=== PATIENT | male | born 1975 | race African-American/Black ===

== ENCOUNTER 2020-11-26 15:21 | Emergency (ER) | payer OTHER ==
[2020-11-26] MEDS ORDERED: Cyclobenzaprine 10 MG Tab PO STA (15:37)
[2020-11-26] MEDS ORDERED: Acetaminophen/HYDROcodone 325-5 MG Tab PO STA (15:37)
[2020-11-26] MEDS ORDERED: Ketorolac 30 MG/ML SDV IM STA (15:37)
--- NOTE | 2020-11-26 16:07 | EDM.PDOC ---
ED HPI GENERAL MEDICAL PROBLEM - General Chief Complaint: Neck Problem Stated Complaint: BACK PAIN Time Seen by Provider: 11/26/20 15:35 Source of Information: Reports: Patient History Limitations: Reports: No Limitations - History of Present Illness INITIAL COMMENTS - FREE TEXT/NARRATIVE: Patient presented to the ED because of a neck and back pain. He was helping a frient moving furniture 5 days ago and since then his neck and back has been hurting. The pain is sharp, spasms, 8/10, worse with movements. He has a history of DDD on his neck and back and is taking gabapentin. Neck Pain Score (Numeric/FACES): 10 - Related Data Allergies Allergy/AdvReac Type Severity Reaction Status Date / Time No Known Allergies Allergy Verified 11/26/20 15:37 Home Meds: Home Meds Cyclobenzaprine [Flexeril] 10 mg PO TID PRN #30 tab 11/26/20 [Rx] clonazePAM [Clonazepam] 1 mg PO ASDIRECTED PRN 11/26/20 [History] predniSONE [Prednisone] 20 mg PO DAILY #30 tablet 11/26/20 [Rx] ED ROS GENERAL - Review of Systems Review Of Systems: See Below Constitutional: Reports: No Symptoms HEENT: Reports: No Symptoms Respiratory: Reports: No Symptoms Cardiovascular: Reports: No Symptoms Endocrine: Reports: No Symptoms GI/Abdominal: Reports: No Symptoms : Reports: No Symptoms Musculoskeletal: Reports: Neck Pain, Back Pain Skin: Reports: No Symptoms Neurological: Reports: No Symptoms Psychiatric: Reports: No Symptoms Hematologic/Lymphatic: Reports: No Symptoms Immunologic: Reports: No Symptoms ED EXAM, UPPER BACK/NECK PAIN - Physical Exam Exam: See Below Exam Limited By: No Limitations General Appearance: Alert, No Apparent Distress Eye Exam: Bilateral Eye: PERRL Ears Exam: Normal External Exam, Normal Canal, Hearing Grossly Normal Nose Exam: Normal Inspection, Normal Mucousa, No Blood Throat/Mouth Exam: Normal Inspection, Normal Lips, Normal Teeth, Normal Gums Head Exam: Atraumatic, Normocephalic Neck Exam: Normal Alignment, Normal Inspection, Paraspinous Muscle Tender, Stiff Neck, Tenderness Nexus Criteria: Posterior, Midline Cervical Tenderness Cardiovascular/Respiratory: Regular Rate, Rhythm, No M/R/G, Normal Peripheral Pulses GI/Abdominal: Normal Bowel Sounds, Soft, Non-Tender, No Organomegaly, No Distention, No Abnormal Bruit Back Exam: Normal Inspection, Muscle Spasm, Vertebral Tenderness Extremities: Normal Inspection, Normal Range of Motion, Non-Tender, No Pedal Edema, Normal Capillary Refill 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, No Motor/Sensory Deficits, Alert Psychiatric: Normal Affect, Normal Mood Skin Exam: Normal Color Course - Vital Signs Text/Narrative:: Toradol 60 mg IM x1 [place] 5mg 2 PO x1 Flexeril 10 mg PO x1 Last Recorded V/S: Last Vital Signs Temp 37.2 C 11/26/20 15:30 Pulse 96 11/26/20 15:30 Resp 18 11/26/20 15:30 BP 123/77 11/26/20 15:30 Pulse Ox 98 11/26/20 15:30 - Orders/Labs/Meds Meds: Medications Discontinued Medications Generic Name Dose Route Start Last Admin Trade Name Freq PRN Reason Stop Dose Admin Hydrocodone Bitart/Acetaminophen 2 tab 11/26/20 15:37 11/26/20 15:47 Acetaminophen/Hydrocodone 325-5 Mg Tab PO 11/26/20 15:38 2 tab NOW STA Administration Cyclobenzaprine HCl 10 mg 11/26/20 15:37 11/26/20 15:47 Cyclobenzaprine 10 Mg Tab PO 11/26/20 15:38 10 mg NOW STA Administration Ketorolac Tromethamine 60 mg 11/26/20 15:37 11/26/20 15:47 Ketorolac 30 Mg/Ml Sdv IM 11/26/20 15:38 60 mg NOW STA Administration Departure - Departure Time of Disposition: 16:15 Disposition: Home, Self-Care 01 Condition: Good Clinical Impression: DDD (degenerative disc disease), Chronic low back pain, Rheumatoid arthritis, Lupus - Discharge Information Prescriptions: Cyclobenzaprine [Flexeril] 10 mg PO TID PRN #30 tab PRN Reason: Spasms predniSONE [Prednisone] 20 mg PO DAILY #30 tablet Instructions: Rheumatoid Arthritis, [id number], Degenerative Disk Disease Referrals: Jason Guadarrama MD [Primary Care Provider] - Forms: ED Department Discharge Additional Instructions: Please read discharge instructions on DDD, Chronic Low back pain Take prednisone 20 mg daily for 10 days Flexeril 10 mg with tylenol 1000 mg every 8 hours as needed for pain Follow up as needed Sepsis Event Note (ED) - Evaluation Sepsis Screening Result: No Definite Risk
== END 2020-11-26 16:20 | disposition home or self-care (01) ==
LOC: FB.ED 15:21
DX: M51.36 Other intervertebral disc degeneration, lumbar region (principal); M06.9 Rheumatoid arthritis, unspecified; L93.0 Discoid lupus erythematosus
CPT/HCPCS: 96372; 99283; A9270; J1885

== ENCOUNTER 2021-09-23 15:15 | Emergency (ER) | payer MEDICAID, OTHER ==
[2021-09-23] MEDS ORDERED: cefTRIAXone 500 MG Vial IM ONE (17:02)
[2021-09-23] MEDS ORDERED: Doxycycline 100 MG Tab PO ONE (17:03)
== END 2021-09-23 18:00 | disposition home or self-care (01) ==
LOC: FB.ED 15:15
DX: N36.8 Other specified disorders of urethra (principal); F17.210 Nicotine dependence, cigarettes, uncomplicated
CPT/HCPCS: 87529; 87529-59; 96372; 99281; 99283; A9270-GY; J0696

== ENCOUNTER 2022-02-13 14:31 | Emergency (ER) | payer MEDICAID ==
[2022-02-13 16:44] LABS: ESTIMATED GFR 57 mL/min (>60)
[2022-02-13] MEDS ORDERED: Morphine 10 MG/ML SDV IM ONE (17:31)
[2022-02-13] MEDS ORDERED: Diazepam 5 MG Tab PO ONE (17:32)
[2022-02-13] MEDS ORDERED: predniSONE 20 MG Tab PO ONE (17:48)
== END 2022-02-13 18:23 | disposition home or self-care (01) ==
LOC: FB.ED 14:31
DX: M62.830 Muscle spasm of back (principal); F17.210 Nicotine dependence, cigarettes, uncomplicated; Z91.040 Latex allergy status; Z91.018 Allergy to other foods; Z88.5 Allergy status to narcotic agent; Z79.899 Other long term (current) drug therapy
CPT/HCPCS: 36415; 74176; 80053; 81001; 83735; 85025; 86140; 96372; 99284; A9270; J2270; J7512

== ENCOUNTER 2022-10-29 18:40 | Emergency (ER) | payer MEDICAID ==
[2022-10-29] MEDS ORDERED: Ketorolac 30 MG/ML SDV IM ONE (19:41)
[2022-10-29] MEDS ORDERED: Acetaminophen 500 MG Tab PO ONE (19:42)
[2022-10-29] MEDS ORDERED: Cyclobenzaprine 10 MG Tab PO ONE (19:42)
[2022-10-29 19:59] LABS: BILIRUBIN,URINE NEGATIVE (NEGATIVE); GLUCOSE,URINE NORMAL (NORMAL); KETONES,URINE NEGATIVE (NEGATIVE); LEUKOCYTE ESTERASE,URINE NEGATIVE (NEGATIVE); NITRITE,URINE NEGATIVE (NEGATIVE); OCCULT BLOOD,URINE NEGATIVE (NEGATIVE); PROTEIN,URINE NEGATIVE (NEGATIVE); UROBILINOGEN,URINE 1 mg/dL (NEGATIVE)
[2022-10-29 20:04] LABS: APPEARANCE,URINE CLEAR (CLEAR); BACTERIA,URINE RARE (NS); COLOR,URINE YELLOW (YELLOW); RBC,URINE 0-5 (0-5); SQUAMOUS EPITHELIAL CELLS,UR RARE (NS,R,O); WBC,URINE 0-5 (0-5)
[2022-10-29 20:09] LABS: BASOPHILS ABSOLUTE AUTO 0.1 x10-3/uL (0.0-0.3); EOSINOPHILS ABSOLUTE AUTO 0.2 x10-3/uL (0.0-0.6); EOSINOPHILS PERCENT AUTO 2.4 % (0.1-6.8); HEMATOCRIT 47.4 % (38.3-50.1); HEMOGLOBIN 16.2 g/dL (12.9-17.7); LYMPHOCYTES ABSOLUTE AUTO 1.8 x10-3/uL (0.5-4.5); LYMPHOCYTES PERCENT AUTO 27.4 % (15.8-45.3); MEAN CORPUSCULAR HEMOGLOBIN 29.7 pg (27.0-33.3); MEAN CORPUSCULAR HGB CONC 34.1 g/dL (28.7-35.3); MEAN PLATELET VOLUME 7.7 fL (6.7-11.0); MONOCYTES ABSOLUTE AUTO 0.6 x10-3/uL (0.0-1.2); MONOCYTES PERCENT AUTO 8.9 % (5.5-15.2); NEUTROPHILS ABSOLUTE AUTO 3.9 x10-3/uL (1.7-6.9); NEUTROPHILS PERCENT AUTO 60.3 % (40.3-71.8); PLATELET COUNT,PLT 308 x10(3)uL (117-477); RED BLOOD CELL COUNT 5.45 x10(6)uL (3.90-5.90); RED CELL DISTRIBUTION WIDTH 14.2 % (12.4-15.0); WHITE BLOOD CELL COUNT,WBC 6.5 x10-3/uL (3.2-10.1)
[2022-10-29 20:11] LABS: BLOOD UREA NITROGEN,BUN 13 mg/dL (7-18); BUN/CREATININE RATIO 10.8 (9-20); CALCIUM 9.1 mg/dL (8.6-10.2); CARBON DIOXIDE,CO2 30 mmol/L (21-32); CHLORIDE,CL 102 mmol/L (100-110); CREATININE 1.2 mg/dL (0.70-1.30); ESTIMATED GFR 74 mL/min (>60); GLUCOSE RANDOM 102 mg/dL (80-116); POTASSIUM,K 4.2 mmol/L (3.5-5.3); SODIUM,NA 138 mmol/L (135-145)
[2022-10-29 20:17] LABS: A/G RATIO 0.9; ALANINE AMINOTRANSFERASE,ALT 25 U/L (12-36); ALBUMIN 3.9 g/dL (3.5-5.2); ALKALINE PHOSPHATASE 158 IU/L (56-112); ASPARTATE AMNIOTRANSFERASE,AST 20 IU/L (5-25); BILIRUBIN TOTAL 0.4 mg/dL (0.1-1.3); PROTEIN TOTAL,TP 8.1 g/dL (6.0-8.0)
[2022-10-29] MEDS ORDERED: predniSONE 20 MG Tab PO ONE (21:13)
== END 2022-10-29 21:25 | disposition home or self-care (01) ==
LOC: FB.ED 18:40
DX: M62.830 Muscle spasm of back (principal); Z91.09 Other allergy status, other than to drugs and biological substances; Z91.040 Latex allergy status; Z91.018 Allergy to other foods; Z88.5 Allergy status to narcotic agent
CPT/HCPCS: 36415; 80053; 81001; 85025; 86140; 96372; 99283; A9270; J1885

== ENCOUNTER 2022-12-18 21:03 | Emergency (ER) | payer MEDICAID ==
[2022-12-18] MEDS: hydrOXYzine HCl 50 MG/ML SDV IM ONE (22:34)
[2022-12-18] MEDS: Ketorolac 30 MG/ML SDV IM ONE (22:34)
== END 2022-12-18 22:47 | disposition home or self-care (01) ==
LOC: FB.ED 21:03
DX: M05.9 Rheumatoid arthritis with rheumatoid factor, unspecified (principal); Z91.040 Latex allergy status; Z91.018 Allergy to other foods; Z88.5 Allergy status to narcotic agent; Z91.038 Other insect allergy status; Z79.899 Other long term (current) drug therapy
CPT/HCPCS: 96372; 99283; J1885; J3410; 99284

== ENCOUNTER 2024-04-01 09:38 | Emergency (ER) | payer MEDICAID ==
[2024-04-01] MEDS ORDERED: Sodium Chloride 0.9% 10 ML Syringe FLUSH PRN (10:14)
[2024-04-01] MEDS: Sodium Chloride 0.9% 1,000 ML IV ONE ×2 (10:43→12:03)
[2024-04-01] MEDS: Ketorolac 15 MG/ML SDV IVPUSH ONE (10:52)
[2024-04-01] MEDS: Ondansetron 4 MG/2 ML SDV IVPUSH ONE (10:52)
[2024-04-01 11:03] LABS: BASOPHILS PERCENT AUTO 0.3 % (0.3-3.8); EOSINOPHILS PERCENT AUTO 0.4 % (0.1-6.8); HEMATOCRIT 45.7 % (38.3-50.1); HEMOGLOBIN 15.6 g/dL (12.9-17.7); LYMPHOCYTES ABSOLUTE AUTO 0.6 x10-3/uL (0.5-4.5); LYMPHOCYTES PERCENT AUTO 13.8 % (15.8-45.3); MEAN CORPUSCULAR HEMOGLOBIN 30.8 pg (27.0-33.3); MEAN CORPUSCULAR HGB CONC 34.1 g/dL (28.7-35.3); MEAN CORPUSCULAR VOLUME 90.3 fL (80.8-98.7); MEAN PLATELET VOLUME 7.6 fL (6.7-11.0); MONOCYTES ABSOLUTE AUTO 0.6 x10-3/uL (0.0-1.2); MONOCYTES PERCENT AUTO 13.2 % (5.5-15.2); NEUTROPHILS ABSOLUTE AUTO 3.3 x10-3/uL (1.7-6.9); NEUTROPHILS PERCENT AUTO 72.2 % (40.3-71.8); PLATELET COUNT,PLT 221 x10(3)uL (117-477); RED BLOOD CELL COUNT 5.06 x10(6)uL (3.90-5.90); RED CELL DISTRIBUTION WIDTH 14.3 % (12.4-15.0); WHITE BLOOD CELL COUNT,WBC 4.5 x10-3/uL (3.2-10.1)
[2024-04-01 11:15] LABS: BLOOD UREA NITROGEN,BUN 12 mg/dL (7-18); BUN/CREATININE RATIO 9.2 (9-20); CALCIUM 8.9 mg/dL (8.6-10.2); CARBON DIOXIDE,CO2 27 mmol/L (21-32); CHLORIDE,CL 102 mmol/L (100-110); CREATININE 1.3 mg/dL (0.70-1.30); ESTIMATED GFR 67 mL/min (>60); GLUCOSE RANDOM 92 mg/dL (80-116); POTASSIUM,K 4.1 mmol/L (3.5-5.3); SODIUM,NA 138 mmol/L (135-145)
[2024-04-01 11:20] LABS: LACTIC ACID 0.8 mmol/L (0.4-2.0)
[2024-04-01 11:22] LABS: ALANINE AMINOTRANSFERASE,ALT 21 U/L (12-36); ALBUMIN 3.7 g/dL (3.5-5.2); ALKALINE PHOSPHATASE 152 IU/L (56-112); ASPARTATE AMNIOTRANSFERASE,AST 14 IU/L (5-25); BILIRUBIN TOTAL 0.4 mg/dL (0.1-1.3); PROTEIN TOTAL,TP 7.3 g/dL (6.0-8.0)
== END 2024-04-01 13:48 | disposition home or self-care (01) ==
LOC: FB.ED 09:38
DX: B34.9 Viral infection, unspecified (principal); Z88.5 Allergy status to narcotic agent; Z91.040 Latex allergy status; Z91.030 Bee allergy status; Z91.018 Allergy to other foods; Z79.52 Long term (current) use of systemic steroids; Z79.899 Other long term (current) drug therapy
CPT/HCPCS: 36415; 80053; 83605; 85025; 96361; 96374; 96375; 99283; 99284-25; J1885; J2405; J7030

== ENCOUNTER 2024-04-21 15:04 | Emergency (ER) | payer MEDICAID ==
[2024-04-21 15:44] LABS: BASOPHILS ABSOLUTE AUTO 0.1 x10-3/uL (0.0-0.3); BASOPHILS PERCENT AUTO 1.1 % (0.3-3.8); EOSINOPHILS ABSOLUTE AUTO 0.1 x10-3/uL (0.0-0.6); EOSINOPHILS PERCENT AUTO 1.5 % (0.1-6.8); HEMATOCRIT 44.9 % (38.3-50.1); HEMOGLOBIN 15.4 g/dL (12.9-17.7); LYMPHOCYTES ABSOLUTE AUTO 1.4 x10-3/uL (0.5-4.5); LYMPHOCYTES PERCENT AUTO 29.6 % (15.8-45.3); MEAN CORPUSCULAR HEMOGLOBIN 29.9 pg (27.0-33.3); MEAN CORPUSCULAR HGB CONC 34.3 g/dL (28.7-35.3); MEAN CORPUSCULAR VOLUME 87.2 fL (80.8-98.7); MEAN PLATELET VOLUME 7.4 fL (6.7-11.0); MONOCYTES ABSOLUTE AUTO 0.5 x10-3/uL (0.0-1.2); MONOCYTES PERCENT AUTO 9.4 % (5.5-15.2); NEUTROPHILS ABSOLUTE AUTO 2.8 x10-3/uL (1.7-6.9); NEUTROPHILS PERCENT AUTO 58.4 % (40.3-71.8); PLATELET COUNT,PLT 352 x10(3)uL (117-477); RED BLOOD CELL COUNT 5.16 x10(6)uL (3.90-5.90); RED CELL DISTRIBUTION WIDTH 14.5 % (12.4-15.0); WHITE BLOOD CELL COUNT,WBC 4.8 x10-3/uL (3.2-10.1)
[2024-04-21 15:47] LABS: BLOOD UREA NITROGEN,BUN 10 mg/dL (7-18); BUN/CREATININE RATIO 7.1 (9-20); CALCIUM 8.9 mg/dL (8.6-10.2); CARBON DIOXIDE,CO2 31 mmol/L (21-32); CHLORIDE,CL 107 mmol/L (100-110); CREATININE 1.4 mg/dL (0.70-1.30); ESTIMATED GFR 61 mL/min (>60); GLUCOSE RANDOM 80 mg/dL (80-116); POTASSIUM,K 4.2 mmol/L (3.5-5.3); SODIUM,NA 144 mmol/L (135-145)
[2024-04-21 15:53] LABS: ALANINE AMINOTRANSFERASE,ALT 20 U/L (12-36); ALBUMIN 3.4 g/dL (3.5-5.2); ALKALINE PHOSPHATASE 136 IU/L (56-112); ASPARTATE AMNIOTRANSFERASE,AST 15 IU/L (5-25); BILIRUBIN TOTAL 0.5 mg/dL (0.1-1.3); PROTEIN TOTAL,TP 6.7 g/dL (6.0-8.0)
[2024-04-21 15:58] LABS: AMPHETAMINES SCREEN, URINE POSITIVE (NEGATIVE); BARBITURATE SCREEN,URINE NEGATIVE (NEGATIVE); BENZODIAZEPINES SCREEN,URINE NEGATIVE (NEGATIVE); METHADONE SCREEN, URINE NEGATIVE (NEGATIVE); METHAMPHETAMINE SCREEN, URINE POSITIVE (NEGATIVE); OXYCODONE SCREEN,URINE NEGATIVE (NEGATIVE); THC SCREEN,URINE NEGATIVE (NEGATIVE)
[2024-04-21 15:59] LABS: BUPRENORPHINE SCREEN,URINE NEGATIVE (NEGATIVE)
== END 2024-04-21 16:48 | disposition home or self-care (01) ==
LOC: FB.ED 15:04
DX: R82.5 Elevated urine levels of drugs, medicaments and biological substances (principal); F17.210 Nicotine dependence, cigarettes, uncomplicated; Z88.5 Allergy status to narcotic agent; Z91.040 Latex allergy status; Z91.030 Bee allergy status; Z91.018 Allergy to other foods; Z79.52 Long term (current) use of systemic steroids; Z79.899 Other long term (current) drug therapy
CPT/HCPCS: 36415; 80053; 80307; 85025; 99284

== ENCOUNTER 2024-04-23 12:27 | Emergency (ER) | payer MEDICAID ==
[2024-04-23] MEDS ORDERED: Ondansetron 4 MG Tab.DIS PO ONE (12:28)
[2024-04-23] MEDS ORDERED: Sodium Chloride 0.9% 10 ML Syringe FLUSH PRN (13:46)
[2024-04-23 14:05] LABS: BASOPHILS ABSOLUTE AUTO 0.1 x10-3/uL (0.0-0.3); BASOPHILS PERCENT AUTO 1.7 % (0.3-3.8); EOSINOPHILS ABSOLUTE AUTO 0.1 x10-3/uL (0.0-0.6); EOSINOPHILS PERCENT AUTO 1.9 % (0.1-6.8); HEMATOCRIT 44.8 % (38.3-50.1); HEMOGLOBIN 15.3 g/dL (12.9-17.7); LYMPHOCYTES ABSOLUTE AUTO 1.5 x10-3/uL (0.5-4.5); LYMPHOCYTES PERCENT AUTO 34.4 % (15.8-45.3); MEAN CORPUSCULAR HGB CONC 34.2 g/dL (28.7-35.3); MEAN CORPUSCULAR VOLUME 87.7 fL (80.8-98.7); MEAN PLATELET VOLUME 7.1 fL (6.7-11.0); MONOCYTES ABSOLUTE AUTO 0.4 x10-3/uL (0.0-1.2); MONOCYTES PERCENT AUTO 9.8 % (5.5-15.2); NEUTROPHILS ABSOLUTE AUTO 2.2 x10-3/uL (1.7-6.9); NEUTROPHILS PERCENT AUTO 52.2 % (40.3-71.8); PLATELET COUNT,PLT 316 x10(3)uL (117-477); RED BLOOD CELL COUNT 5.11 x10(6)uL (3.90-5.90); RED CELL DISTRIBUTION WIDTH 14.4 % (12.4-15.0); WHITE BLOOD CELL COUNT,WBC 4.3 x10-3/uL (3.2-10.1)
[2024-04-23 14:07] LABS: BILIRUBIN,URINE NEGATIVE (NEGATIVE); GLUCOSE,URINE NORMAL (NORMAL); KETONES,URINE 150 mg/dL (NEGATIVE); LEUKOCYTE ESTERASE,URINE NEGATIVE (NEGATIVE); NITRITE,URINE NEGATIVE (NEGATIVE); OCCULT BLOOD,URINE NEGATIVE (NEGATIVE); PROTEIN,URINE TRACE mg/dL (NEGATIVE); UROBILINOGEN,URINE NORMAL (NEGATIVE)
[2024-04-23 14:09] LABS: COLOR,URINE YELLOW (YELLOW)
[2024-04-23 14:10] LABS: APPEARANCE,URINE CLEAR (CLEAR)
[2024-04-23 14:11] LABS: BLOOD UREA NITROGEN,BUN 7 mg/dL (7-18); BUN/CREATININE RATIO 5.8 (9-20); CALCIUM 8.6 mg/dL (8.6-10.2); CARBON DIOXIDE,CO2 33 mmol/L (21-32); CHLORIDE,CL 105 mmol/L (100-110); CREATININE 1.2 mg/dL (0.70-1.30); ESTIMATED GFR 74 mL/min (>60); GLUCOSE RANDOM 88 mg/dL (80-116); POTASSIUM,K 4.8 mmol/L (3.5-5.3); SODIUM,NA 140 mmol/L (135-145)
[2024-04-23 14:11] LABS: BACTERIA,URINE FEW (NS); RBC,URINE 0-5 (0-5); SQUAMOUS EPITHELIAL CELLS,UR FEW (NS,R,O); WBC,URINE 0-5 (0-5)
[2024-04-23 14:13] LABS: LIPASE 11 U/L (16-77)
[2024-04-23 14:14] LABS: C-REACTIVE PROTEIN < 0.50 mg/dL (<0.50)
[2024-04-23 14:17] LABS: ALANINE AMINOTRANSFERASE,ALT 22 U/L (12-36); ALBUMIN 3.1 g/dL (3.5-5.2); ALKALINE PHOSPHATASE 134 IU/L (56-112); ASPARTATE AMNIOTRANSFERASE,AST 17 IU/L (5-25); BILIRUBIN TOTAL 0.5 mg/dL (0.1-1.3); MAGNESIUM 1.7 mg/dL (1.8-2.5); PROTEIN TOTAL,TP 6.1 g/dL (6.0-8.0)
[2024-04-23] MEDS: Ondansetron 4 MG/2 ML SDV IVPUSH ONE (14:31)
[2024-04-23] MEDS: Sodium Chloride 0.9% 1,000 ML IV ONE (14:31)
[2024-04-23] MEDS: Ketorolac 30 MG/ML SDV IVPUSH ONE (15:06)
== END 2024-04-23 16:17 | disposition home or self-care (01) ==
LOC: FB.ED 12:27
DX: E86.0 Dehydration (principal); K04.7 Periapical abscess without sinus; J40 Bronchitis, not specified as acute or chronic; R11.2 Nausea with vomiting, unspecified; F17.200 Nicotine dependence, unspecified, uncomplicated; Z91.030 Bee allergy status; Z91.040 Latex allergy status; Z91.018 Allergy to other foods; Z88.5 Allergy status to narcotic agent; Z79.899 Other long term (current) drug therapy
CPT/HCPCS: 36415; 71046; 80053; 81001; 83605; 83690; 83735; 85025; 86140; 96361; 96374; 96375; 99285; J1885; J2405; J7030; Q0162

== ENCOUNTER 2024-07-10 11:53 | Emergency (ER) | payer MEDICAID ==
[2024-07-10 13:19] LABS: BASOPHILS ABSOLUTE AUTO 0.1 x10-3/uL (0.0-0.3); BASOPHILS PERCENT AUTO 1.3 % (0.3-3.8); BLOOD UREA NITROGEN,BUN 10 mg/dL (7-18); BUN/CREATININE RATIO 7.1 (9-20); CALCIUM 9.1 mg/dL (8.6-10.2); CARBON DIOXIDE,CO2 28 mmol/L (21-32); CHLORIDE,CL 107 mmol/L (100-110); CREATININE 1.4 mg/dL (0.70-1.30); EOSINOPHILS ABSOLUTE AUTO 0.1 x10-3/uL (0.0-0.6); EOSINOPHILS PERCENT AUTO 2.1 % (0.1-6.8); EST CRCL DRUG DOSING (CG) 66.49 mL/min; ESTIMATED GFR 61 mL/min (>60); GLUCOSE RANDOM 83 mg/dL (80-116); HEMATOCRIT 44.7 % (38.3-50.1); HEMOGLOBIN 15.2 g/dL (12.9-17.7); LYMPHOCYTES ABSOLUTE AUTO 1.6 x10-3/uL (0.5-4.5); LYMPHOCYTES PERCENT AUTO 29.5 % (15.8-45.3); MEAN CORPUSCULAR HEMOGLOBIN 29.7 pg (27.0-33.3); MEAN CORPUSCULAR VOLUME 87.3 fL (80.8-98.7); MEAN PLATELET VOLUME 7.5 fL (6.7-11.0); MONOCYTES ABSOLUTE AUTO 0.5 x10-3/uL (0.0-1.2); MONOCYTES PERCENT AUTO 9.2 % (5.5-15.2); NEUTROPHILS ABSOLUTE AUTO 3.1 x10-3/uL (1.7-6.9); NEUTROPHILS PERCENT AUTO 57.9 % (40.3-71.8); PLATELET COUNT,PLT 289 x10(3)uL (117-477); POTASSIUM,K 4.1 mmol/L (3.5-5.3); RED BLOOD CELL COUNT 5.12 x10(6)uL (3.90-5.90); RED CELL DISTRIBUTION WIDTH 14.2 % (12.4-15.0); SODIUM,NA 143 mmol/L (135-145); WHITE BLOOD CELL COUNT,WBC 5.3 x10-3/uL (3.2-10.1)
[2024-07-10 13:25] LABS: ALANINE AMINOTRANSFERASE,ALT 31 U/L (12-36); ALBUMIN 3.7 g/dL (3.5-5.2); ALKALINE PHOSPHATASE 134 IU/L (56-112); ASPARTATE AMNIOTRANSFERASE,AST 27 IU/L (5-25); BILIRUBIN TOTAL 0.4 mg/dL (0.1-1.3); PROTEIN TOTAL,TP 7.4 g/dL (6.0-8.0)
[2024-07-10 13:28] LABS: INR 0.92 (1.00-1.24); PROTHROMBIN TIME 9.7 sec (9.0-11.1)
[2024-07-10 13:32] LABS: PTT,PARTIAL THROMBOPLSTIN TIME 25.9 SECONDS (24.4-33.2)
[2024-07-10] MEDS: Albuterol/Ipratropium 3.0-0.5 MG/3 ML Neb Soln NEB ONE (14:01)
== END 2024-07-10 14:20 | disposition home or self-care (01) ==
LOC: FB.ED 11:53
DX: R04.0 Epistaxis (principal); F17.200 Nicotine dependence, unspecified, uncomplicated; J45.909 Unspecified asthma, uncomplicated; F41.9 Anxiety disorder, unspecified; J06.9 Acute upper respiratory infection, unspecified; Z91.040 Latex allergy status; Z91.018 Allergy to other foods; Z88.8 Allergy status to other drugs, medicaments and biological substances; Z79.899 Other long term (current) drug therapy
CPT/HCPCS: 36415; 71046; 80053; 83735; 85025; 85610; 85730; 86140; 94640; 99284; J7620; A9270-GY